=== PATIENT | male | born 1965 | race Caucasian/White ===

== ENCOUNTER → 2016-06-13 | Outpatient (CLI) | payer MEDICAID ==
[~2016-06-13] MED LIST: GADOBUTROL 10 ML VIAL IVP ONE
== END ==
LOC: FIMAGING 07:51
PROVIDERS: ATTEND Family Medicine
DX: R41.89 Other symptoms and signs involving cognitive functions and awareness (principal)
CPT/HCPCS: A9585

== ENCOUNTER 2016-07-29 14:25 | Emergency (ER) | payer MEDICAID ==
[2016-07-29 14:34] VITALS: TEMP 97.7
--- NOTE | 2016-07-29 14:58 | EDPHY ---
H & P Time Seen by Provider: 07/29/16 14:51 HPI/ROS: CHIEF COMPLAINT: Right shoulder injury HISTORY OF PRESENT ILLNESS: This 51-year-old man was walking his dog a week ago when he accidentally fell down about a 10 foot gradual embankment 1st catching himself with his outstretched arm which then got forcibly abducted as he fell further down the slope. He has had pain in the right shoulder ever since, which is worse with abduction or with rotation. Not associated with weakness or numbness in the right hand. REVIEW OF SYSTEMS: No skin lesions and no abdominal pain. No neck or back pain. PAST MEDICAL HISTORY: Traumatic brain injury Social history: Lives independently, right-handed not currently working General Appearance: Alert and conversant, cooperative. No cervical spine tenderness. No skin lesions abrasions or lacerations. No clavicular or bony tenderness on the shoulder or upper arm. Normal radial pulse and motor and sensory in the right hand. Patient has pain with passive abduction and rotation of the shoulder but it is less with passive movement than with active. No tenderness over the liver. Emergency Department course/MDM: X-ray of the right shoulder. 1530: Reviewed imaging studies with the patient and mandatory orthopedic follow -up. Warned he may have an internal injury such as a rotator cuff or labrum problem. Smoking Status: Never smoked Constitutional: Initial Vital Signs Temperature (C) 36.5 C 07/29/16 14:31 Heart Rate 65 07/29/16 14:31 Respiratory Rate 18 07/29/16 14:31 Blood Pressure 146/93 H 07/29/16 14:31 O2 Sat (%) 94 07/29/16 14:31 O2 Delivery Mode Room Air Allergies/Adverse Reactions: No Known Allergies Allergy (Verified 07/29/16 14:30) Home Medications: Medication Instructions Recorded Amitriptyline HCl 07/29/16 DIAZEPAM 07/29/16 Levothyroxine 07/29/16 MDM/Departure - MDM Imaging Results: Imaging Impressions Shoulder X-Ray 07/29/16 14:58 Impression: No fracture or significant degenerative changes of the right shoulder. - Depart Disposition: Home, Routine, Self-Care Clinical Impression: Injury of right shoulder Qualifiers: Encounter type: initial encounter Qualified Code(s): S49.91XA - Unspecified injury of right shoulder and upper arm, initial encounter Condition: Good Instructions: Rotator Cuff Injury (ED) Additional Instructions: Please follow-up with Orthopedics within the next week. It is possible that you have an internal shoulder injury such as a rotator cuff tear or an injury to your labrum. Referrals: Lubna Perdomo MD [Primary Care Provider] - As per Instructions Shivam Lerner MD [Medical Doctor] - As per Instructions (orthopedic referral )
[2016-07-29 16:08] VITALS: BP 129/96; PULSE 82; RESP 16; O2SAT 93
== END 2016-07-29 16:06 | disposition home or self-care (01) ==
DX: S49.91XA Unspecified injury of right shoulder and upper arm, initial encounter (principal); W17.81XA Fall down embankment (hill), initial encounter; Y99.8 Other external cause status; Y93.K1 Activity, walking an animal